=== PATIENT | female | born 1990 | race Caucasian/White ===

== ENCOUNTER 2017-11-26 17:10 | Outpatient (CLI) | payer OTHER, SELFPAY ==
[2017-11-26 17:44] VITALS: BMI 22.8
[2017-11-26 18:21] LABS: Bacteria 0 SEEN /hpf (None Seen); Mucous, Urine 0 SEEN /hpf (<or=2+); Red Blood Cells-Urine 0 SEEN /hpf (0-5)
[2017-11-26 18:25] LABS: Color, Urine Yellow (Yellow); Glucose, Dipstick Normal (Normal); Ketone-Dipstick Negative (Negative); Leukocyte Esterase-Dipstick 25 /ul (Negative); Nitrite-Dipstick Negative (Negative); Occult Blood-Urine Negative /ul (Negative); Protein-Dipstick Negative (Negative); Urine Bilirubin Dipstick Negative (Negative); Urine Clarity Sl. Cloudy (Clear); Urine Urobilinogen Normal (Normal)
[2017-11-26 18:37] LABS: Squamous Epithelial Cells - UA 0-5 SEEN /hpf (5-10); White Blood Cells 0-5 SEEN /hpf (0-5)
[2017-11-26 18:38] LABS: Amorphous Sediment 1+ PHOS
--- NOTE | 2017-12-02 07:52 | OB.TRI.NOTE ---
History of Present Illness Date of Service: 11/26/17 Was patient seen by the physician?: No Reason For Visit: abdominal pain r/o labor Date of Service: 11/26/17 Final ELEAZAR: 02/03/18 Gestational age: 31 Weeks and 0 Days Home Medications Medication Instructions Recorded DiphenhydrAMINE [Benadryl] 25 mg PO QHS PRN 11/26/17 Ergocalciferol [Vitamin D] 1 tab PO DAILY 11/26/17 Prenatabs FA 1 tab PO DAILY 11/26/17 Allergies Sulfa (Sulfonamide Antibiotics) Allergy (Verified 11/26/17 17:47) Rash NST - FHR Rate Baby A Baseline: 145 Variability:: Moderate Accelerations:: 15 x 15 Decelerations:: Variable - one variable NST Reactive:: Yes FHR Category:: Category I Uterine Activity:: irritability Impression/Plan 27yo @ 31 weeks, false labor dc home
== END 2017-11-26 18:55 | disposition home or self-care (01) ==
LOC: WPOUT 17:39 → WP 17:40
PROVIDERS: Visit Provider Obstetrics & Gynecology
DX: O47.03 False labor before 37 completed weeks of gestation, third trimester (principal); Z3A.31 31 weeks gestation of pregnancy
CPT/HCPCS: 59025; 59050; 81001; 99218; G0378

== ENCOUNTER 2017-12-22 05:00 | Inpatient (IN) | payer OTHER, SELFPAY ==
[2017-12-22] VITALS (17 sets, daily range): BP systolic 98–111; BP diastolic 55–74; PULSE 64–110; RESP 12–18; TEMP 36.5–36.9; O2SAT 97–100; BMI 26.1
[2017-12-22] MEDS: Lactated Ringers 500 ML 999 ML IV (05:45)
[2017-12-22] MEDS: Betamethasone/Betamethasone 30 MG/5 ML Vial 12 MG IM (06:02)
[2017-12-22 06:12] LABS: Hematocrit 40.1 % (37-47); Hemoglobin 13.8 g/dl (12.0-15.0); Mean Corp Hgb Conc 34.4 g/gl (32-36); Mean Corpuscular Hgb 31.6 pg (27.0-32.0); Mean Corpuscular Volume 91.8 fL (81-99); Mean Platelet Vol. 10.9 fl (6.2-12.0); Platelet Count 204 K/mm3 (150-450); RBC Distribution Width CV 12.5 % (11.6-14.6); RBC Distribution Width SD 41.2 fl (35.1-43.9); Red Blood Count 4.37 M/mm3 (4.2-5.4); White Blood Count 13.7 K/mm3 (4.4-11.0)
[2017-12-22 06:14] LABS: Scan Indicated on CBC? Y/N NO
--- NOTE | 2017-12-22 07:15 | PCM.HP.OB ---
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 Patient tried hydration, position changes and use of hydrotherapy without any resolution. Antepartum course uncomplicated - patient was followed by MFM up to 24 weeks gestation for known history of EDS - Type III and BAR. Cervical length was monitored by ultrasound also and was >3cm. Frequent evaluations for contractions during course at hospital though no cervical change was noted on those admissions. Pertinent Past Medical History: Milo-Danlos Syndrome Type III POTS (POstural Orthostatic Tachycardia Syndrome) Orthostatic Hypotension Hypermobility Syndrome Complications of Anesthesia - patient reports difficulty coming out of surgery Allergies Sulfa (Sulfonamide Antibiotics) Allergy (Verified 12/22/17 06:12) Rash Current Medications Acetaminophen (Tylenol) 325 - 650 mg PO Q4H PRN PRN PRN Reason: PAIN OR FEVER >100.4F Al Hydroxide/Mg Hydroxide (Mylanta Ii) 15 - 30 ml PO Q4H PRN PRN PRN Reason: INDIGESTION Citric Acid/Sodium Citrate (Bicitra) 30 ml PO UD PRN Ampicillin Sodium 2 gm/ Sodium (Chloride) 108 mls @ 150 mls/hr IV Q6H [facility] Last Admin: 12/22/17 06:03 Dose: 150 mls/hr Lactated Ringer's () 1,000 mls @ 200 mls/hr IV .Q5H ALYSSA Nalbuphine HCl (Nubain) 5 - 10 mg IV Q3H PRN PRN PRN Reason: PAIN (4-10/10) Ondansetron HCl (Zofran) 4 mg IV Q8H PRN PRN PRN Reason: NAUSEA Promethazine HCl (Phenergan (Ll)) 6.25 - 12.5 mg IV Q4H PRN PRN; Protocol PRN Reason: IF NAUSEA PERSISTS Sodium Chloride () 5 - 15 ml IV UD [facility] Smoking Status: Never smoker Alcohol: None Drug Use: none Number of Fetus(es): 1 Review of Systems Constitutional: Denies: Chills, Fever, Weight Change HEENT: Denies: Head Aches, Sinus Congestion, Sinus Drainage Cardiovascular: Denies: Chest Pain, Edema, Palpitations Respiratory: Denies: Cough, Shortness of breath at rest Gastrointestinal: Denies: Abdominal Pain - Patient reports ctx q 3-5 minutes that are short and lasting 30 seconds long, Nausea, Vomiting Genitourinary: Denies: Dysuria Musculoskeletal: Denies: Joint swelling, Joint Tenderness Skin: Denies: Rash, Wounds Neurological: Denies: Numbness, Tingling, Focal weakness Psychiatric: Denies: Anxiety, Depression, Homicidal Ideations, Suicidal Ideations Hematologic/ Lymphatic: Denies: Easy Bruising, Easy Bleeding Physical Exam Vitals: VSS, Afebrile - see nursing note for vital signs FHT 150 baseline, moderate variability, + accels, no decels Ctx mild to moderately palpable q 3-5 minutes, lasting 30-60 seconds General: Alert, Oriented x3, No apparent distress Cardiovascular: Regular rate, Regular Rhythm Lungs: Clear to auscultation, Normal air movement Abdomen: Bowel Sounds Present, Gravid, Appropriate for Gestational Age Extremities:: No edema, Normal pulses, No tenderness/swelling Estimated gestational size: Appropriate for gestational size Presentation: Cephalic - Confirmed by u/s Cervix Dilation (cm): 4.5 - Initial exam by nursing staff was 3/100/BBOW 2 hours prior Station: -1 - BBOW palpable Effacement (%): 100 Assessment/Plan Active and Suspected Problems labor in third trimester (Acute) A: 27 y/o @ 33.6wks, Category I FHT, Pre-term Labor P: 1) Dr. Pete CODY HUMAN RESOURCE ADVISOR back-up consulted and informed of admission and patient status 2) IV started, 500cc fluid bolus LR given with maintenance rate of 200 cc/hr 3) Betamethasone 12mg IM x 1 now, rpt dose in 24 hours if patient undelivered 4) Ampicillin 2g IV load dose, then 1g IV q 4 hours for unknown GBS status 5) Discussion done re: use of terbutaline - not recommended 6) Peds consult done - anticipate [place] [facility] team to be en route and present for delivery with plan of transfer as no SCN beds available at this time on the unit 7) Transfer of care to medical management. Dionne Morrison CNM
--- NOTE | 2017-12-22 07:31 | HP.PCM_ITS ---
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 Patient tried hydration, position changes and use of hydrotherapy without any resolution. Antepartum course uncomplicated - patient was followed by MFM up to 24 weeks gestation for known history of EDS - Type III and BAR. Cervical length was monitored by ultrasound also and was >3cm. Frequent evaluations for contractions during course at hospital though no cervical change was noted on those admissions. Pertinent Past Medical History: Milo-Danlos Syndrome Type III POTS (POstural Orthostatic Tachycardia Syndrome) Orthostatic Hypotension Hypermobility Syndrome Complications of Anesthesia - patient reports difficulty coming out of surgery Allergies Sulfa (Sulfonamide Antibiotics) Allergy (Verified 12/22/17 06:12) Rash Current Medications Acetaminophen (Tylenol) 325 - 650 mg PO Q4H PRN PRN PRN Reason: PAIN OR FEVER >100.4F Al Hydroxide/Mg Hydroxide (Mylanta Ii) 15 - 30 ml PO Q4H PRN PRN PRN Reason: INDIGESTION Citric Acid/Sodium Citrate (Bicitra) 30 ml PO UD PRN Ampicillin Sodium 2 gm/ Sodium (Chloride) 108 mls @ 150 mls/hr IV Q6H [facility] Last Admin: 12/22/17 06:03 Dose: 150 mls/hr Lactated Ringer's () 1,000 mls @ 200 mls/hr IV .Q5H ALYSSA Nalbuphine HCl (Nubain) 5 - 10 mg IV Q3H PRN PRN PRN Reason: PAIN (4-10/10) Ondansetron HCl (Zofran) 4 mg IV Q8H PRN PRN PRN Reason: NAUSEA Promethazine HCl (Phenergan (Ll)) 6.25 - 12.5 mg IV Q4H PRN PRN; Protocol PRN Reason: IF NAUSEA PERSISTS Sodium Chloride () 5 - 15 ml IV UD [facility] Smoking Status: Never smoker Alcohol: None Drug Use: none Number of Fetus(es): 1 Review of Systems Constitutional: Denies: Chills, Fever, Weight Change HEENT: Denies: Head Aches, Sinus Congestion, Sinus Drainage Cardiovascular: Denies: Chest Pain, Edema, Palpitations Respiratory: Denies: Cough, Shortness of breath at rest Gastrointestinal: Denies: Abdominal Pain - Patient reports ctx q 3-5 minutes that are short and lasting 30 seconds long, Nausea, Vomiting Genitourinary: Denies: Dysuria Musculoskeletal: Denies: Joint swelling, Joint Tenderness Skin: Denies: Rash, Wounds Neurological: Denies: Numbness, Tingling, Focal weakness Psychiatric: Denies: Anxiety, Depression, Homicidal Ideations, Suicidal Ideations Hematologic/ Lymphatic: Denies: Easy Bruising, Easy Bleeding Physical Exam Vitals: VSS, Afebrile - see nursing note for vital signs FHT 150 baseline, moderate variability, + accels, no decels Ctx mild to moderately palpable q 3-5 minutes, lasting 30-60 seconds General: Alert, Oriented x3, No apparent distress Cardiovascular: Regular rate, Regular Rhythm Lungs: Clear to auscultation, Normal air movement Abdomen: Bowel Sounds Present, Gravid, Appropriate for Gestational Age Extremities:: No edema, Normal pulses, No tenderness/swelling Estimated gestational size: Appropriate for gestational size Presentation: Cephalic - Confirmed by u/s Cervix Dilation (cm): 4.5 - Initial exam by nursing staff was 3/100/BBOW 2 hours prior Station: -1 - BBOW palpable Effacement (%): 100 Assessment/Plan Active and Suspected Problems labor in third trimester (Acute) A: 27 y/o @ 33.6wks, Category I FHT, Pre-term Labor P: 1) Dr. Pete CODY SUPERVISOR HOUSECLEANER back-up consulted and informed of admission and patient status 2) IV started, 500cc fluid bolus LR given with maintenance rate of 200 cc/hr 3) Betamethasone 12mg IM x 1 now, rpt dose in 24 hours if patient undelivered 4) Ampicillin 2g IV load dose, then 1g IV q 4 hours for unknown GBS status 5) Discussion done re: use of terbutaline - not recommended 6) Peds consult done - anticipate [place] [facility] team to be en route and present for delivery with plan of transfer as no SCN beds available at this time on the unit 7) Transfer of care to medical management. Dionne Morrison CNM
--- NOTE | 2017-12-22 08:22 | PCM.PN.BLA ---
Progress Note pt examined at bedside, VE: 0 - Membranes were ruptured- BREECH presentation noted- pt was counseled on need for primary c/s. Ultrasound done at bedside, to confirm BREECH. pt was counseled on Primary c/s risks and benefits- pt was questioning Breech vaginal delviery- we reviewed risks of this and she agrees to proceed with C/S. anesthesia and OR notified.
[2017-12-22] MEDS: Cefazolin 2 GM in 0.9% Normal Saline 100 ML IV (08:30)
[2017-12-22] MEDS: Lactated Ringers 1,000 ML 999 ML IV (08:35)
[2017-12-22] MEDS: Oxytocin 30 units/NS 500 ml 30 UNITS/500 ML IV.SOLN 167 UNITS IV (08:46)
[2017-12-22] MEDS: Methylergonovine 0.2 MG/ML Ampul IM (08:48)
[2017-12-22] MEDS: Lactated Ringers 1,000 ML 100 ML IV ×2 (09:26→15:49)
--- NOTE | 2017-12-22 09:26 | OP.PCM_ITS ---
Delivery Classification: Stat Final ELEAZAR: 02/03/18 Final ELEAZAR Source: US <20 weeks Gestational age: 33 Weeks and 6 Days Indications: labor at 33.6 wks, Progressed to 9cm at which time AROM performed and noted to be in BREECH presentation. Pt was counseled on Primary c/s PEDS and OR staff notified. Indications for : Breech, - - labor Description of Procedure: Surgeon: Dr. Suzanne Pelaez Sales And Service Engineer: HAILEY Mejias administrative library assistant: Ruby Yeung MS3 Preoperative diagnosis: labor 33.6 wk, advanced dilation with BREECH presentation Postoperative diagnosis: Same Findings: Celestone given x 1 dose. AROM PERFORMED- 9cm bulging membranes- Found to be breech presentation confirmed on ultrasound. Stat CS called. Live female infant born at 0846 with apgars 7-9, Weight pending. Methergine Given x 1 for uterine atony no hemorrhage. Anesthesia: General Complications: None Estimated blood loss: 750 Implantable devices: None Operative note: After informed consent was obtained the patient was taken the operating room she was given General anesthesia. She was prepped and draped in the normal sterile fashion. At this time a Pfannenstiel skin incision was made with a knife was carried down to the underlying layer of the fascia. The fascial incision was then extended laterally using curved Vincent scissor. Tensions was then turned to the superior aspect of the fascial edge was grasped with 2 straight Natalya clamps tented up and the rectus muscle dissected off sharply using curved Vincent scissor. Attention was then turned to the inferior aspect where again Natalya clamps were placed in the rectus muscles were tented up and the fascia was dissected off sharply using the curved Vincent scissor. Rectus muscles were then in the midline bluntly and peritoneum was entered bluntly. Gentle opposing traction was placed. At this time the vesicouterine peritoneum was identified. Scalpel was used to make a uterine incision in a low transverse fashion. The uterus was then entered bluntly gentle opposing traction was placed to extend this incision. Amniotic fluid clear. Infant's buttocks was brought to the uterine incision was delivered atraumatically followed by upper extremities, and head. Cord was clamped and cut infant was handed to the waiting nursery team. The Placenta was removed from the uterus. The uterus was then removed from the abdominal cavity. The uterus was cleared of all clots and debris using a lap. . At this time the uterine incision was reapproximated using #1 Vicryl in a running locked fashion. Atony noted- methergine given x 1 dose. Hemostasis was appreciated. Posterior cul-de-sac was then cleared of all clots and debris. Uterus was placed back in the abdominal cavity. Gutters were cleared of all clots and debris. Uterine incision was reevaluated and noted to be of excellent hemostasis. Caron placed. At this time the peritoneum was grasped with Kellys reapproximated using #2 Vicryl suture in a running fashion. Muscles then reapproximated using #2 Vicryl in a interrupted mattress suture fashion. Fascia was then reapproximated using #1 Vicryl in a running fashion. Subcu layer was reapproximated with #2 0 plain gut suture in an interrupted fashion. Subcu layer was closed using 4-0 vicryl on a Lauri needle in a subcu fashion. Dry sterile dressing was applied. Instrument lap needle count correct ?2. Anticipated normal postoperative course. Amniotic Membrane Rupture Type: Artificial Amniotic Fluid Description: Clear Placenta Disposition: [facility] Specimen(s) sent to pathology: placenta Drain: Roca to straight drain Cord Entanglement: None Nuchal Cord Compression: Without compression Cord Vessel Description: 3 Vessels Esitmated Blood Loss (ml): 750 Infant Gender: Female (1 minute): 7 (5 minute): 9 Delayed cord clamping: No Pre-op Antibiotic Given: - - zithromax 500mg IV Pt instructed on risks of surgery: Bleeding, Anesthesia Risks, Infection, Need for Future C-Sections - Do not reccomend due to Connective tissue disorder - Ehler Danlos, Injury to surrounding structure(s) including bowel and bladder Complications: None - Admit VTE Documentation VTE Present on Admission: Yes VTE Mechan Device Prophylaxis: SCD's VTE Pharm Prophylaxis ordered?: No
[2017-12-22] MEDS: HYDROmorphone 1 MG/ML Syringe IV (09:41)
[2017-12-22] MEDS: Ketorolac 30 MG/ML Syringe IV ×3 (09:45→22:14)
[2017-12-22 10:13] LABS: Group B Strep DNA By PCR Negative (Negative); Internal Control PASS; Probe Check PASS; Specimen Processing Control PASS
[2017-12-22] MEDS: oxyCODONE 5 MG Tablet PO ×3 (13:15→21:31)
[2017-12-22] MEDS: 0.9% Saline Lock 10 ML Syringe IV (15:49)
[2017-12-23] MEDS: 0.9% Saline Lock 10 ML Syringe IV ×3 (04:11→14:33)
[2017-12-23] MEDS: Ketorolac 30 MG/ML Syringe IV ×3 (04:11→14:32)
[2017-12-23 04:31] VITALS: BP 101/56; PULSE 83; RESP 18; TEMP 36.5; O2SAT 97
[2017-12-23 04:59] LABS: Hematocrit 30.9 % (37-47); Hemoglobin 10.6 g/dl (12.0-15.0); Mean Corp Hgb Conc 34.3 g/gl (32-36); Mean Corpuscular Hgb 31.7 pg (27.0-32.0); Mean Corpuscular Volume 92.5 fL (81-99); Mean Platelet Vol. 10.8 fl (6.2-12.0); Platelet Count 181 K/mm3 (150-450); RBC Distribution Width CV 12.3 % (11.6-14.6); RBC Distribution Width SD 40.3 fl (35.1-43.9); Red Blood Count 3.34 M/mm3 (4.2-5.4); White Blood Count 19.4 K/mm3 (4.4-11.0)
[2017-12-23 05:00] LABS: Scan Indicated on CBC? Y/N NO
--- NOTE | 2017-12-23 08:09 | PCM.PN.OB ---
Patient Problems: Active and Suspected Problems labor in third trimester (Acute) Subjective: pt seen at bedside, doing well. pt reports increased pain but feels it is muscular in nature from clenching rails during labor. pt reports some incision pain. Lochia mild. pt reports voiding, passing flatus. Denies CP, SOB, dizziness. - Physical Exam General: Alert, Oriented x3 Abdomen: Soft, Non-Distended, - - incisional dressing dry and intact. fundus firm Extremities: No Calf Tenderness Vital Signs Temp Pulse Resp BP Pulse Ox 97.7 F L 83 18 101/56 L 97 12/23/17 04:31 12/23/17 04:31 12/23/17 04:31 12/23/17 04:31 12/23/17 04:31 Oxygen Delivery Method Room Air Weight: 58.6 kg Body Mass Index (BMI) 26.1 Intake and Output for Last 24 Hours 12/21/17 12/22/17 12/23/17 23:59 23:59 23:59 Intake Total 3290 / 3290 Output Total 2300 / 2300 Balance 990 / 990 Laboratory Tests Past 24 Hrs 12/22/17 12/22/17 12/23/17 05:45 07:25 04:20 WBC 19.4 H RBC 3.34 L Hgb 10.6 L Hct 30.9 L MCV 92.5 MCH 31.7 MCHC 34.3 RDW 12.3 RDW Differential 40.3 Plt Count 181 MPV 10.8 Group B Strep DNA Negative Specimen Comment Not Reportable Crossmatch See Detail Assessment/Plan Active and Suspected Problems labor in third trimester (Acute) POD#1, doing well routine care pain mgmt ambulation continue abdominal binder
[2017-12-23] MEDS: oxyCODONE 5 MG Tablet PO ×2 (08:26→16:20)
[2017-12-23] MEDS: Senna/Docusate Sodium 1 Tablet PO (08:26)
[2017-12-23 08:42] VITALS: BP 102/63; PULSE 83; RESP 18; TEMP 36.6; O2SAT 96
--- NOTE | 2017-12-23 09:48 | NURSING ---
overseeing manager nursing home, pt. assessment completed with her.
[2017-12-23 16:02] VITALS: BP 101/57; PULSE 104; RESP 18; TEMP 36.8; O2SAT 96
--- NOTE | 2017-12-23 16:24 | DCINST_ITS ---
Discharge Diet: No Restrictions Discharge Activity: Return to Normal Activity, May Not Drive - for 2 weeks, May not drive while taking narcotic pain medications., May Shower, May Take a Tub Bath - in 7 days. May resume sexual activity in: 4-6 weeks Lifting Restrictions: 20 pounds Additional Activity Instructions:: Nothing in the vagina for 4-6 weeks. You may return to work/school in 6 weeks. Call your doctor if your incision/area has: Continuous Slow Oozing, Sudden Increased Bleeding, Increased Pain/ Swelling, Increased Redness, Foul Smelling Discharge Call your doctor if you observe: Fever of 101 or Higher, Using more than one pad per hour - for 2 hours Suture Line Care: Avoid Pulling/Pushing, Avoid Pinching/Bending Cleanse incision/area with: Keep Dressing Clean & Dry Additional Instructions: If you experience any of the following, contact your healthcare provider. * Bleeding that soaks a pad every hour for 2 hours * Fever 100.4 or higher * Unrelieved incision or abdominal pain * Swelling, redness, discharge or bleeding from your incision or episiotomy site * Your incision begins to separate * Problems urinating (including inability to urinate or burning while urinating) . * Visual changes * Severe headache * Flu-like symptoms * Pain or redness in one of both of your breasts * Pain, warmth, tenderness or swelling in your legs, especially the calf area * Frequent nausea and vomiting * Symptoms of depression or anxiety If you experience any of the following, call 911 or go to the nearest Emergency Room. * Chest pain * Problems breathing * Seizure activity * Partial or complete paralysis of a body part, slurred speech, weakness or drooping of the face, or a sudden inability to walk or hold your balance Allergies/Adverse Reactions: Allergies Sulfa (Sulfonamide Antibiotics) Allergy (Verified 12/22/17 06:12) Rash Medications to take at Discharge DiphenhydrAMINE [Benadryl] 25 mg PO QHS PRN MDD 50mg 11/26/17 Ergocalciferol [Vitamin D] 1 tab PO DAILY 11/26/17 Prenatabs FA 1 tab PO DAILY 11/26/17 Acetaminophen [Tylenol] 325 mg PO PRN 12/22/17 Docusate Sodium [Colace] 100 mg PO BID PRN PRN #60 cap 12/23/17 Ibuprofen [Motrin] 600 mg PO Q6H PRN #60 tab 12/23/17 Oxycodone HCl/Acetaminophen [Percocet 5/325] 1 - 2 tablet PO Q6H PRN PRN 7 Days #28 tablet 12/23/17 The following prescriptions were given: Oxycodone HCl/Acetaminophen [Percocet 5/325] 1 - 2 tablet PO Q6H PRN PRN 7 Days #28 tablet PRN Reason: Pain Docusate Sodium [Colace] 100 mg PO BID PRN PRN #60 cap PRN Reason: Constipation Ibuprofen [Motrin] 600 mg PO Q6H PRN #60 tab PRN Reason: Pain Orders to be completed after discharge: Electric breast pump Location: None Selected Follow-Up: Call to make an appointment with your doctor for an incision check in 1-2 weeks. You will also need a 6 week post- follow up appointment. Please Follow Up With: Suzanne Pelaez MD - Call to make an appointment for an incision check in 1-2 [phone] When: You will need a post check in 6 weeks.
--- NOTE | 2017-12-23 16:24 | PCM.PN.OB ---
Patient Problems: Active and Suspected Problems labor in third trimester (Acute) Subjective: pain controlled, average lochia - Physical Exam General: Alert, Cooperative, No apparent distress Abdomen: Soft, Distended - mildly, Tender - appropriately Skin: Incision - clean, dry and intact Vital Signs Temp Pulse Resp BP Pulse Ox 98.2 F 104 H 18 101/57 L 96 12/23/17 16:02 12/23/17 16:02 12/23/17 16:02 12/23/17 16:02 12/23/17 16:02 Oxygen Delivery Method Room Air Weight: 58.6 kg Body Mass Index (BMI) 26.1 Intake and Output for Last 24 Hours 12/21/17 12/22/17 12/23/17 23:59 23:59 23:59 Intake Total 3290 / 3290 Output Total 2300 / 2300 Balance 990 / 990 Microbiology Past 72 Hours 12/22/17 Unknown Group B Streptococcus Culture - Preliminary Genital vaginal Laboratory Tests Past 24 Hrs 12/23/17 04:20 WBC 19.4 H RBC 3.34 L Hgb 10.6 L Hct 30.9 L MCV 92.5 MCH 31.7 MCHC 34.3 RDW 12.3 RDW Differential 40.3 Plt Count 181 MPV 10.8 Assessment/Plan Active and Suspected Problems labor in third trimester (Acute)
--- NOTE | 2017-12-23 16:50 | DS.PCM_ITS ---
Discharge Date and Diagnosis - Problem List Patient Problems: Active and Suspected Problems labor in third trimester (Acute) Date of Admission: 12/22/17 Date of Discharge: 12/23/17 - Primary Discharge Diagnosis Active and Suspected Problems labor in third trimester (Acute) - Secondary Discharge Diagnosis Chronic Problems Milo-Danlos syndrome type III (Chronic) POTS (postural orthostatic tachycardia syndrome) (Chronic) Hypermobility syndrome (Chronic) Orthostatic hypotension (Chronic) Hospital Course and Treatment Consultations 12/22/17 05:35 Consult: Anesthesia Routine Comment: Reason For Exam: routine Operations: - - primary LTCS under general anesthesia, stat for breech, PTL Procedures: None Summary of Care Provided: The patient is a 27 year old Female admitted at 33 weeks for active labor. At 9 cm found to be breech, incidental AROM w/ cervical exam. Taken for stat c/s, general anesthetic. Postop day #1 she was doing well. Pain was controlled w/ oral meds. D/elsi home at her request due being transferred to [facility]. Routine instructions and prescriptions. [] Discharge Diet: No Restrictions Discharge Activity: Return to Normal Activity, May Not Drive - for 2 weeks, May not drive while taking narcotic pain medications., May Shower, May Take a Tub Bath - in 7 days. May resume sexual activity in: 4-6 weeks Additional Activity Instructions:: Nothing in the vagina for 4-6 weeks. You may return to work/school in 6 weeks. Call your doctor if your incision/area has: Continuous Slow Oozing, Sudden Increased Bleeding, Increased Pain/ Swelling, Increased Redness, Foul Smelling Discharge Call your doctor if you observe: Fever of 101 or Higher, Using more than one pad per hour - for 2 hours Suture Line Care: Avoid Pulling/Pushing, Avoid Pinching/Bending Cleanse incision/area with: Keep Dressing Clean & Dry Home Medications: Medications to take at Discharge DiphenhydrAMINE [Benadryl] 25 mg PO QHS PRN MDD 50mg 11/26/17 Ergocalciferol [Vitamin D] 1 tab PO DAILY 11/26/17 Prenatabs FA 1 tab PO DAILY 11/26/17 Acetaminophen [Tylenol] 325 mg PO PRN 12/22/17 Docusate Sodium [Colace] 100 mg PO BID PRN PRN #60 cap 12/23/17 Ibuprofen [Motrin] 600 mg PO Q6H PRN #60 tab 12/23/17 Oxycodone HCl/Acetaminophen [Percocet 5/325] 1 - 2 tablet PO Q6H PRN PRN 7 Days #28 tablet 12/23/17 Following Prescrptions Were Given to Patient: Oxycodone HCl/Acetaminophen [Percocet 5/325] 1 - 2 tablet PO Q6H PRN PRN 7 Days #28 tablet PRN Reason: Pain Docusate Sodium [Colace] 100 mg PO BID PRN PRN #60 cap PRN Reason: Constipation Ibuprofen [Motrin] 600 mg PO Q6H PRN #60 tab PRN Reason: Pain Other Amb Orders: Electric breast pump Location: None Selected Primary Care Physician: Care Physician,No Primary [Primary Care Provider] - Please Follow Up With: Suzanne Pelaez MD - Call to make an appointment for an incision check in 1-2 [phone] When: You will need a post check in 6 weeks. Meaningful Use Info Meaningful Use Diagnoses (Choose all that apply): None applicable
== END 2017-12-23 17:25 | disposition home or self-care (01) | DRG 765 ==
PROVIDERS: Obstetrics & Gynecology; Admitting Provider Obstetrics & Gynecology; Visit Provider Obstetrics & Gynecology
DX: O32.1XX0 Maternal care for breech presentation, not applicable or unspecified (principal); O60.14X0 Preterm labor third trimester with preterm delivery third trimester, not applicable or unspecified; Q79.6 Ehlers-Danlos syndromes; O62.2 Other uterine inertia; Z37.0 Single live birth; Z3A.33 33 weeks gestation of pregnancy
CPT/HCPCS: 59025; 59050; 76815; 85027; 86850; 86900; 86920; 87081; 87653; 99218; J7120; A4216; G0378; J0702

== ENCOUNTER 2020-05-30 12:03 | Observation (INO) | payer BC, SELFPAY ==
[2020-05-30 11:15] VITALS: BMI 22.8
[2020-05-30 11:30] VITALS: TEMP 36.9
[2020-05-30 11:32] VITALS: BP 106/68; PULSE 117
[2020-05-30] MEDS: Betamethasone/Betamethasone 30 MG/5 ML Vial 12 MG IM (11:54)
[2020-05-30 11:56] VITALS: BMI 23.4
--- NOTE | 2020-05-30 12:03 | OB.TRI.NOTE ---
History of Present Illness Date of Service: 05/30/20 Was patient seen by the physician?: Yes Reason For Visit: OBSERVATION r/o PTL Date of Service: 05/30/20 Final ELEAZAR Source: US <20 weeks History of Present Illness: 29yo @ 26.6 weeks, h/o EDS with delivery at 33.6 wks (LTCS) last - presented to office with c/o occasional ctx but more pressure sensation. VE in office /. No contractions on NST. decision for overnight observation with Celestone and if changing cervical exam will transport to tertiary [facility]. 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 1) observation 2) celestone 3) monitor fhr/toco 4) transport if cervical change
[2020-05-30 17:03] VITALS: BP 92/60; PULSE 100; PULSE 98; TEMP 36.6; O2SAT 97
[2020-05-30 20:09] VITALS: BP 91/53; PULSE 100; TEMP 37.1
[2020-05-31 00:09] VITALS: BP 95/59; PULSE 86; TEMP 36.8
[2020-05-31 04:33] VITALS: BP 92/59; PULSE 84; TEMP 36.8
[2020-05-31] MEDS: 0.9% NaCl Peripheral Flush Adult/Peds IV (04:43)
--- NOTE | 2020-05-31 07:18 | PCM.PN.BLA ---
Progress Note Patient seen at bedside, doing well. Patient reports occasional pressure no significant regular contractions overnight. No bleeding or leaking fluid. Patient reports good movement. On my exam today vaginal exam remains the same approximately 60/-5. FF and was collected prior to this. I discussed with the patient that we will only use it for the negative predictive value. Not sure implications EDS would have on the results of this as well as the patient was examined less than 24 hours ago. Discussed with the patient discharge home after second dose of Celestone. To call if any increased pressure or regular painful contractions persist. We discussed that if she has to be transported she would [place] [facility] [place] STROKE Vital Signs/Narrative: Vital Signs Temp Pulse BP 05/31/20 04:33 98.2 F 84 92/59 L
[2020-05-31 07:30] VITALS: BP 103/59; PULSE 86; TEMP 37.2
[2020-05-31 08:09] LABS: Fetal Fibronectin Negative
[2020-05-31] MEDS: Betamethasone/Betamethasone 30 MG/5 ML Vial 12 MG IM (10:28)
== END 2020-05-31 10:40 | disposition home or self-care (01) ==
LOC: WPOUT 05-31 08:50 → WP 05-31 08:50
PROVIDERS: Obstetrics & Gynecology; Admitting Provider Advanced Practice Midwife; PCP Family Medicine; Referring Provider Advanced Practice Midwife; Visit Provider Advanced Practice Midwife
DX: O26.892 Other specified pregnancy related conditions, second trimester (principal); Z3A.26 26 weeks gestation of pregnancy; N85.8 Other specified noninflammatory disorders of uterus
CPT/HCPCS: 59025; 59050; 82731; 96372; 99218; A4216; G0378; J0702

== ENCOUNTER 2020-06-20 10:15 | Outpatient (CLI) | payer BC, SELFPAY ==
[2020-06-20 10:31] VITALS: BMI 24.0
[2020-06-20 10:58] VITALS: TEMP 37.2; O2SAT 97
[2020-06-20 10:59] VITALS: BP 94/58; PULSE 92
--- NOTE | 2020-06-20 18:49 | OB.TRI.NOTE ---
- Problem List (1) Vagina bleeding Status: Acute (2) labor in third trimester Status: Acute (3) Milo-Danlos syndrome type III Status: Chronic History of Present Illness Date of Service: 06/20/20 Was patient seen by the physician?: No Reason For Visit: OBSERVATION Date of Service: 06/20/20 Final ELEAZAR: 08/30/20 Final ELEAZAR Source: US <20 weeks Gestational age: 29 Weeks and 6 Days History of Present Illness: Patient is a at 29.6 weeks gestation that was sent over from office due to vaginal bleeding. Patient denies any loss of fluid, or contractions. Positive movement. Patient has history of delivery, on progesterone injections, and history of vaginal bleeding during this . Allergies Sulfa (Sulfonamide Antibiotics) Allergy (Verified 06/20/20 10:28) Rash as a baby black pepper Adverse Reaction (Verified 06/20/20 10:28) Shortness of breath Review of Systems Constitutional: Denies: Anorexia, Fever HEENT: Denies: Head Aches Cardiovascular: Denies: Chest Pain Respiratory: Denies: Cough, Shortness of Breath Gastrointestinal: Denies: Abdominal Pain Genitourinary: Denies: Dysuria, Frequency Gynecological: Reports: Vaginal bleeding Physical Exam Vitals: Vital Signs Temp Pulse BP Pulse Ox 99.0 F 92 94/58 L 97 06/20/20 10:58 06/20/20 10:59 06/20/20 10:59 06/20/20 10:58 General: Oriented x3 Cardiovascular: Regular rate Lungs: Normal air movement Abdomen: Soft, Non Tender, Non-Distended Neurological: Cranial nerves II-XII grossly intact Cervix Dilation (cm): 1 Station: -2 Effacement (%): 70 NST - FHR Rate Baby A Baseline: 130 Variability:: Moderate Accelerations:: 10 x 10 Decelerations:: None NST Reactive:: Yes, Appropriate for gestational age Uterine Activity:: irritability Impression/Plan at 29.6 weeks gestation vaginal bleeding NST- reactive, no contractions S/P 2 doses of Celestone IM injections No cervical change from earlier this week Discharge home with labor precautions Patient to follow up in office next week or PRN Dr. Saenz aware and agrees with plan of care
[2020-06-20 19:33] VITALS: PULSE 100; O2SAT 96
[2020-06-20 19:36] VITALS: BP 114/58; PULSE 96
== END 2020-06-20 12:18 | disposition home or self-care (01) ==
LOC: WP 11:39 → WPOUT 06-21 10:36 → WP 06-21 10:37
PROVIDERS: PCP Family Medicine; Visit Provider Obstetrics & Gynecology
DX: O46.93 Antepartum hemorrhage, unspecified, third trimester (principal); Z3A.29 29 weeks gestation of pregnancy; Q79.60 Ehlers-Danlos syndrome, unspecified
CPT/HCPCS: 59025; 59050; 99218; G0378

== ENCOUNTER 2020-07-15 07:40 | Inpatient (IN) | payer BC, SELFPAY ==
[2020-07-15] VITALS (21 sets, daily range): BP systolic 92–113; BP diastolic 43–70; PULSE 74–113; RESP 16–20; TEMP 36.2–37.5; O2SAT 94–100; BMI 24.0
--- NOTE | 2020-07-15 05:07 | OB.TRI.NOTE ---
- Problem List (1) 33 weeks gestation of Status: Acute (2) Gestational diabetes Status: Acute (3) labor in third trimester Status: Acute (4) Milo-Danlos syndrome type III Status: Chronic (5) POTS (postural orthostatic tachycardia syndrome) Status: Chronic History of Present Illness Date of Service: 07/15/20 Was patient seen by the physician?: Yes Reason For Visit: RULE OUT PRE TERM LABOR Date of Service: 07/15/20 Final ELEAZAR: 08/30/20 Final ELEAZAR Source: US <20 weeks Gestational age: 33 Weeks and 3 Days History of Present Illness: She reports she had 30 minutes of contractions that were every 1 to 2 minutes apart. Since arriving into the hospital and being here she feels like the contractions have subsided and spaced apart. No leaking of fluid or vaginal bleeding. Good movement. No abdominal pain. 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 Will give 1 L IVF bolus - GBS collected - FFN sent - Will recheck in 2 hrs
[2020-07-15] MEDS: Lactated Ringers 1,000 ML 999 ML IV ×2 (05:15→08:00)
[2020-07-15 05:28] LABS: Color, Urine Yellow (Yellow); Glucose, Dipstick Normal (Normal); Ketone-Dipstick Negative (Negative); Leukocyte Esterase-Dipstick Negative /ul (Negative); Nitrite-Dipstick Negative (Negative); Occult Blood-Urine Negative /ul (Negative); Protein-Dipstick Negative (Negative); Specific Gravity, Urine 1.005 (1.002-1.030); Urine Bilirubin Dipstick Negative (Negative); Urine Clarity Clear (Clear); Urine Urobilinogen Normal (Normal)
[2020-07-15 05:50] LABS: Bedside Glucose 99 mg/dL (70-110)
[2020-07-15 06:37] LABS: Group B Strep DNA By PCR Negative (Negative); Internal Control PASS; Probe Check PASS; Specimen Processing Control PASS
[2020-07-15 06:39] LABS: Fetal Fibronectin POSITIVE
[2020-07-15] MEDS: Acetaminophen 500 MG Tablet 1000 MG PO ×3 (08:01→20:59)
[2020-07-15] MEDS: Cefazolin 2 GM in 0.9% Normal Saline 100 ML IV (08:01)
[2020-07-15] MEDS: Betamethasone/Betamethasone 30 MG/5 ML Vial 12 MG IM (08:02)
[2020-07-15] MEDS: 0.9% Saline Lock 10 ML Syringe IV ×2 (08:03→21:00)
[2020-07-15 08:06] LABS: Absolute Lymphocyte Count 1.83 X10^3/uL (0.83-4.51); Absolute Neutrophil Count 7.1 X10^3/uL (2.0-7.7); Basophil# 0.02 X10^3/uL; Basophil% 0.2 % (0-1); Eosinophil# 0.28 X10^3/uL; Eosinophils% 2.8 % (0-5); Hematocrit 40.4 % (37-47); Hemoglobin 13.4 g/dL (12.0-15.0); Lymphocyte # 1.83 X10^3/ul (4.0); Lymphocyte % 18.5 % (19-41); Mean Corp Hgb Conc 33.2 g/dL (32-36); Mean Corpuscular Hgb 30.4 pg (27.0-32.0); Mean Corpuscular Volume 91.6 fL (81-99); Mean Platelet Vol. 10.2 fl (6.2-12.0); Monocyte# 0.59 X10^3/uL; NRBC Flagged by Analyzer 0 % (0-5); Neutrophil # 7.11 X10^3/uL (2.7-7.7); Neutrophil % 71.8 % (47-70); Platelet Count 183 K/mm3 (150-450); RBC Distribution Width CV 12.1 % (11.6-14.6); RBC Distribution Width SD 40.4 fl (35.1-43.9); Red Blood Count 4.41 M/mm3 (4.2-5.4); White Blood Count 9.9 K/mm3 (4.4-11.0)
[2020-07-15] MEDS: Sodium Citrate/Citric Acid 30 ML UDC PO (08:34)
--- NOTE | 2020-07-15 10:05 | HP.PCM_ITS ---
- Problem List (1) 33 weeks gestation of Status: Acute (2) Gestational diabetes Status: Acute (3) labor in third trimester Status: Acute (4) Milo-Danlos syndrome type III Status: Chronic (5) POTS (postural orthostatic tachycardia syndrome) Status: Chronic History Date of Admission: 12/22/17 Final ELEAZAR: 08/30/20 Final ELEAZAR Source: US <20 weeks Gestational age: 33 Weeks and 3 Days History of this : This is a 29 year-old, G 2, P 0101, at 33 weeks gestational age who presented with painful ctx's. No vb, lof. Good FM. Cvx changed from 1 to 3 to 4 cm. Allergies Sulfa (Sulfonamide Antibiotics) Allergy (Verified 07/15/20 05:01) Rash as a baby black pepper Adverse Reaction (Verified 07/15/20 05:01) Shortness of breath Home Medications: Home Medications Ergocalciferol [Vitamin D] 1 tab PO DAILY 11/26/17 Prenatabs FA 1 tab PO DAILY 11/26/17 Docusate Sodium [Colace] 100 mg PO BID PRN PRN #60 cap 12/23/17 Ascorbic Acid [Vitamin C] 500 mg PO DAILY 05/30/20 [place]-3 Fatty Acids [Fish Oil] 500 mg PO DAILY 05/30/20 Vitamin B-6 50 mg PO DAILY 05/30/20 Zinc 25 mg PO DAILY 05/30/20 Smoking Status: Never smoker Number of Fetus(es): 1 NST - FHR Rate Baby A FHR Category:: Category I Uterine Activity:: ctx q 1-2 min History Past Pregnancies: Past Pregnancies Delivery Date Name GA/ Weeks Outcome Route Wt Sex Labor Length Anesthesia Delivery Location Provider FOB Labs: See [facility] records Expected Delivery Method: Scheduled Section Physical Exam Vitals: Vital Signs Pulse BP Pulse Ox 100 113/70 99 07/15/20 08:09 07/15/20 08:08 07/15/20 08:09 General: Alert, No apparent distress HEENT: Atraumatic Abdomen: Soft, Non Tender, Gravid Extremities:: No edema Neurological: Neuro grossly intact 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 - Cervix changed from 1 to 4 cm dilated - GBS collected - FFN positive - S/p 2 doses of BMZ at 26 wk gestation. Rescue dose given on admission - Routine pre-op care - Discussed r/b/a to a repeat section. Patient states she only wants a tubal ligation if she has a uterine dehiscence but if uterus is normal at time of section, she does not want a tubal ligation. Consent signed and she desires to proceed - She understands baby will go to special care nursery, and possibly be transferred to [place]
[2020-07-15] MEDS: Oxytocin 30 units/NS 500 ml 30 UNITS/500 ML IV.SOLN 167 UNITS IV (10:10)
--- NOTE | 2020-07-15 10:13 | PCM.OPRPT ---
Problem List (1) 33 weeks gestation of Status: Acute (2) Gestational diabetes Status: Acute (3) labor in third trimester Status: Acute (4) Milo-Danlos syndrome type III Status: Chronic (5) POTS (postural orthostatic tachycardia syndrome) Status: Chronic Report of Operation Date of Procedure: 07/15/20 Pre-Operative Diagnosis: 33 week gestation, multiparous patient, history prior section, EDS, labor Post-Operative Diagnosis: As above Surgery/Procedure Performed:: Repeat section Description of Surgical Findings:: Viable female infant in cephalic presentation. Clear fluid. Normal and intact placenta with three-vessel cord. Normal-appearing uterus, bilateral tubes, bilateral ovaries. Minimal to no adhesive disease. Type of Anesthesia:: Spinal Special Medications: None Specimen's removed: Placenta Drains: Roca Estimated Blood Loss (mL): 600 Fluids Replaced: 1000 Description of Procedure: Patient was taken to the operating room where spinal anesthesia was induced and found to be adequate. She was prepped and draped in the dorsal lithotomy position with a leftward tilt. A Pfannenstiel skin incision was made using the scalpel, and this incision was carried down to the underlying layer fascia. The fascia was incised the midline. The fascia was extended laterally using Vincent scissors. The fascia was dissected off of the rectus muscles using a combination of sharp and blunt dissection. The rectus muscles were in the midline. The peritoneum was entered sharply with good visualization of the bladder. A low transverse incision was made on the uterus. Amniotic membranes were ruptured for clear fluid. Infant was noted to be in cephalic presentation and delivered without any force or delay through the hysterotomy. A viable female was delivered atraumatically, and the cord was clamped and cut immediately and the was handed off to the nursery staff. The uterus was exteriorized from the abdomen. Uterus was cleared of all clot and debris. The uterus was closed with Vicryl in 2 layers in usual fashion. Caron was placed over the hysterotomy. The uterus was placed back into the abdomen. Hemostasis was noted. The peritoneum was closed with Vicryl in a running fashion. The rectus was noted to be hemostatic. The fascia was closed with PDS in running fashion. The subcutaneous space was irrigated and made hemostatic with the Bovie cautery. The skin was closed with Monocryl in a subcuticular fashion. Steri-Strips and a dressing were placed. Instrument, sponge, needle counts were correct. The patient was taken to the recovery room in stable condition. - Admit VTE Documentation VTE Present on Admission: No VTE Mechan Device Prophylaxis: SCD's VTE Pharm Prophylaxis ordered?: No Delivery Classification: SPRING Amniotic Membrane Rupture Type: Artificial Amniotic Fluid Description: Clear Drain: Roca to straight drain Cord Entanglement: None Cord Vessel Description: 3 Vessels Gender: Female Delayed cord clamping: No Antibiotic Given: Ancef 2 grams IV x1 Pt instructed on risks of surgery: Bleeding, Infection, Injury to surrounding structure(s) including bowel and bladder
[2020-07-15 12:25] LABS: Bedside Glucose 125 mg/dL (70-110)
--- NOTE | 2020-07-15 12:30 | NURSING ---
1215-dr deras on unit made aware of bgt of 125, and pt feeling dizzy since delivery. going to get some lunch in pt and will see how she feels. if pt continues to feel dizzy may need to do a cbc this evening.
[2020-07-15] MEDS: Senna/Docusate Sodium 1 Tablet PO (12:37)
[2020-07-15] MEDS: Lactated Ringers 1,000 ML 100 ML IV (13:24)
[2020-07-15] MEDS: Ketorolac 30 MG/ML Syringe IV ×2 (15:13→21:00)
--- NOTE | 2020-07-15 16:08 | NURSING ---
1530- erickson removed will need to void
[2020-07-15] MEDS: DiphenhydrAMINE 25 MG Capsule PO (21:00)
[2020-07-15] MEDS: Enoxaparin 40 MG/0.4 ML Syringe SC (21:15)
[2020-07-16] MEDS: Ketorolac 30 MG/ML Syringe IV ×2 (03:09→09:52)
[2020-07-16] MEDS: 0.9% Saline Lock 10 ML Syringe IV ×2 (03:09→09:53)
[2020-07-16] MEDS: Acetaminophen 500 MG Tablet 1000 MG PO ×2 (03:10→09:53)
[2020-07-16 03:13] VITALS: BP 89/48; BP 89/51; PULSE 79; RESP 16; TEMP 36.7; O2SAT 96
[2020-07-16 06:06] LABS: Bedside Glucose 131 mg/dL (70-110)
[2020-07-16 06:12] LABS: Hematocrit 31.1 % (37-47); Hemoglobin 10.3 g/dL (12.0-15.0); Mean Corp Hgb Conc 33.1 g/dL (32-36); Mean Corpuscular Hgb 30.5 pg (27.0-32.0); Mean Platelet Vol. 10.5 fl (6.2-12.0); Platelet Count 166 K/mm3 (150-450); RBC Distribution Width CV 12.2 % (11.6-14.6); Red Blood Count 3.38 M/mm3 (4.2-5.4); White Blood Count 16.9 K/mm3 (4.4-11.0)
[2020-07-16 07:59] VITALS: BP 95/44; PULSE 75; RESP 16; TEMP 36.4; O2SAT 99
[2020-07-16] MEDS: Senna/Docusate Sodium 1 Tablet PO (09:53)
--- NOTE | 2020-07-16 10:40 | PN.OBGYN_ITS ---
Patient Problems: Active and Suspected Problems 33 weeks gestation of (Acute) Gestational diabetes (Acute) Subjective: Patient doing well this morning. She denies lightheadedness, dizziness, chest pain, shortness of breath, leg pain. Lochia normal. Ambulating and voiding without difficulty. Tolerating regular diet without nausea or vomiting. She is pumping. Baby is being transferred and so she desires to be discharged today. - Physical Exam Vitals/I&O's: Vital Signs Temp Pulse Resp BP Pulse Ox 97.6 F L 75 16 95/44 L 99 07/16/20 07:59 07/16/20 07:59 07/16/20 07:59 07/16/20 07:59 07/16/20 07:59 Oxygen Delivery Method Room Air Weight: 135 lb 6.4 oz Body Mass Index (BMI) 24.0 Intake and Output for Last 24 Hours 07/14/20 07/15/20 07/16/20 23:59 23:59 23:59 Intake Total 3742.67 / 3742.67 Output Total 1260 / 1260 Balance 2482.67 / 2482.67 General: Alert, No apparent distress HEENT: Atraumatic Abdomen: Soft, - - ATTP, FF@U-1 Extremities: No edema, No Calf Tenderness Skin: No rashes Neurological: Neuro grossly intact Psych/Mental Status: Normal Affect, Appropriate Laboratory Results 07/15/20 11:30: POC Glucose 125 H 07/16/20 05:53: POC Glucose 131 H 07/16/20 06:00: WBC 16.9 H, RBC 3.38 L, Hgb 10.3 L, Hct 31.1 L, MCV 92.0, MCH 30.5, MCHC 33.1, RDW Std Deviation 41.0, RDW Coeff of Artemio 12.2, Plt Count 166, MPV 10.5 Current Medications Acetaminophen (Tylenol) 1,000 mg PO Q6H [facility] Last Admin: 07/16/20 09:53 Dose: 1,000 mg Documented by: Bisacodyl (Dulcolax) 10 mg RECTAL UD PRN PRN Reason: If no BM Enoxaparin Sodium (Lovenox) 40 mg SC 2200 [facility] Last Admin: 07/15/20 21:15 Dose: 40 mg Documented by: Hydrocortisone (Hytone) 1 applic TOPICAL TID PRN PRN; Protocol PRN Reason: Discomfort Naloxone HCl 4 mg/ Dextrose 504 mls @ 0 mls/hr IV .Q0M PRN; Protocol PRN Reason: Respiratory depression Ibuprofen (Motrin) 600 mg PO Q6H [facility] Methylergonovine Maleate (Methergine) 0.2 mg IM X1 PRN PRN Reason: Uterine Atony Naloxone HCl (Narcan) 0.02 mg IV Q1M PRN PRN Reason: RR <10 and pt unresponsive Ondansetron HCl (Zofran) 4 mg IV Q4H PRN PRN PRN Reason: Nausea Oxycodone HCl (Oxyir) 5 - 10 mg PO Q4H PRN PRN PRN Reason: Pain Score 4-10/10 Prochlorperazine Edisylate (Compazine Iv) 10 mg IV Q6H PRN PRN PRN Reason: NAUSEA Senna/Docusate Sodium (Senokot-S, Verónica-Colace) 0 tablet PO DAILY ALYSSA Last Admin: 07/16/20 09:53 Dose: 2 tablet Documented by: Simethicone (Mylicon) 80 mg PO PCHS PRN PRN Reason: Indigestion/stomach pain Sodium Chloride () 5 - 15 ml IV UD PRN PRN Reason: SALINE FLUSH Last Admin: 07/16/20 09:53 Dose: 10 ml Documented by: Medical Necessity - Tobacco Use Smoking Status: Never smoker Assessment/Plan All Active Problems labor in third trimester (Acute) Vagina bleeding (Acute) 33 weeks gestation of (Acute) Gestational diabetes (Acute) Patient is postoperative day 1 from a repeat section for labor at 33 weeks gestation. She is doing well this morning. She is hemodynamically stable. Postop hemoglobin 10.3. She is pumping. Baby is being transferred and patient desires to go home. She is meeting all milestones for discharge. Reviewed discharge instructions with patient.
--- NOTE | 2020-07-16 10:45 | DCINST_ITS ---
Discharge Diet: No Restrictions Discharge Activity: May Not Drive, May Shower May shower in (days): 0 May resume sexual activity in: 6 weeks Ice area for (Minutes): 15 Weight Bearing Status: Weight bearing as tolerated Lifting Restrictions: Nothing heavier than baby Call your doctor if your incision/area has: Sudden Increased Bleeding, Increased Pain/ Swelling, Increased Redness, Foul Smelling Discharge, Swelling at the incision site Call your doctor if you observe: Fever of 101 or Higher, Inability to urinate, Inability to have a bowel movement, Using more than one pad per hour, Shortness of breath, Dizziness, Fainting spells, Swelling in the ankles, Chest pain, Increased palpitations (irregular heartbeat), Calf discomfort, Uncontrolled pain Suture Line Care: Avoid Pulling/Pushing, Avoid Pinching/Bending Remove Dressing in (days):: 3 Cleanse incision/area with: Soap & Water Additional Instructions: If you experience any of the following, contact your healthcare provider. * Bleeding that soaks a pad every hour for 2 hours * Fever 100.4 or higher * Unrelieved incision or abdominal pain * Swelling, redness, discharge or bleeding from your incision or episiotomy site * Your incision begins to separate * Problems urinating (including inability to urinate or burning while urinating). * Visual changes * Severe headache * Flu-like symptoms * Pain or redness in one of both of your breasts * Pain, warmth, tenderness or swelling in your legs, especially the calf area * Frequent nausea and vomiting * Symptoms of depression or anxiety If you experience any of the following, call 911 or go to the nearest Emergency Room. * Chest pain * Problems breathing * Seizure activity * Partial or complete paralysis of a body part, slurred speech, weakness or drooping of the face, or a sudden inability to walk or hold your balance Allergies/Adverse Reactions: Allergies Sulfa (Sulfonamide Antibiotics) Allergy (Verified 07/15/20 05:01) Rash as a baby black pepper Adverse Reaction (Verified 07/15/20 05:01) Shortness of breath Medications to take at Discharge Ergocalciferol [Vitamin D] 1 tab PO DAILY 11/26/17 Prenatabs FA 1 tab PO DAILY 11/26/17 Docusate Sodium [Colace] 100 mg PO BID PRN PRN #60 cap 12/23/17 Ascorbic Acid [Vitamin C] 500 mg PO DAILY 05/30/20 [place]-3 Fatty Acids [Fish Oil] 500 mg PO DAILY 05/30/20 Vitamin B-6 50 mg PO DAILY 05/30/20 Zinc 25 mg PO DAILY 05/30/20 Docusate Sodium [Colace] 100 mg PO BID PRN PRN #30 cap 07/16/20 Ibuprofen [Motrin] 600 mg PO Q6H PRN PRN #30 tab 07/16/20 Oxycodone HCl/Acetaminophen [Percocet 5/325] 1 tablet PO Q6H PRN PRN 7 Days #10 tablet 07/16/20 The following prescriptions were given: Docusate Sodium [Colace] 100 mg PO BID PRN PRN #30 cap PRN Reason: Constipation Transmission Status: Pending to [id number] Ibuprofen [Motrin] 600 mg PO Q6H PRN PRN #30 tab PRN Reason: Pain Score 4-10/10 Transmission Status: Pending to [id number] Oxycodone HCl/Acetaminophen [Percocet 5/325] 1 tablet PO Q6H PRN PRN 7 Days #10 tablet PRN Reason: Pain Score 6-10/10 Transmission Status: Received by [id number] Follow-Up: Call to make an appointment with your doctor for an incision check in 1-2 weeks. You will also need a 6 week post- follow up appointment. Test results from this visit will be discussed in further detail at your follow- up appointment, if applicable. When: 1-2 weeks for incision check (can be a virtual visit), and 6 weeks Primary Care Physician: Omi Damian MD [Primary Care Provider] -
[2020-07-16 12:20] VITALS: BP 103/53; PULSE 85; RESP 16; TEMP 36.8; O2SAT 98
== END 2020-07-16 12:25 | disposition home or self-care (01) | DRG 786 ==
LOC: WPOUT 07:45 → WP 07:45
PROVIDERS: Admitting Provider Obstetrics & Gynecology; PCP Family Medicine; Referring Provider Obstetrics & Gynecology; Visit Provider Obstetrics & Gynecology
DX: O65.5 Obstructed labor due to abnormality of maternal pelvic organs (principal); O60.14X0 Preterm labor third trimester with preterm delivery third trimester, not applicable or unspecified; O99.42 Diseases of the circulatory system complicating childbirth; Q79.60 Ehlers-Danlos syndrome, unspecified; O34.211 Maternal care for low transverse scar from previous cesarean delivery; I49.8 Other specified cardiac arrhythmias; Z3A.33 33 weeks gestation of pregnancy; Z37.0 Single live birth; O24.429 Gestational diabetes mellitus in childbirth, unspecified control
CPT/HCPCS: 59025; 59050; 81002; 82731; 82962; 85025; 85027; 86850; 86900; 86901; 87081; 87653; 99218; J7120; A4216; G0378; J0702; J2405